=== PATIENT | female | born 1990 | race Caucasian/White ===

== ENCOUNTER 2024-10-30 10:08 | Emergency (ER) | payer BC, MEDICAID ==
[~2024-10-30] VITALS: Ht 167.6 cm; Wt 88.5 kg
[2024-10-30] MEDS ORDERED: IBUPROFEN 400 MG TABLET ONE (10:53)
[2024-10-30] MEDS ORDERED: AMOXicillin 250 MG CAPSULE ONE (10:53)
[2024-10-30] MEDS ORDERED: ACETAMINOPHEN 500 MG TABLET ONE (10:53)
[2024-10-30] MEDS ORDERED: NEOM10DR11 RIGHT EAR (10:54)
[2024-10-30] MEDS ORDERED: AMOX500C2 PO (10:54)
[2024-10-30] MEDS: AMOXicillin 250 MG CAPSULE PO ONE (10:57)
[2024-10-30] MEDS: IBUPROFEN 400 MG TABLET PO ONE (10:57)
[2024-10-30] MEDS: ACETAMINOPHEN 500 MG TABLET PO ONE (10:57)
[2024-10-30 11:06] VITALS: BP 119/86; O2SAT 100
== END 2024-10-30 11:02 ==
LOC: ER 10:08
DX: H60.91 Unspecified otitis externa, right ear (principal); F12.10 Cannabis abuse, uncomplicated; F17.200 Nicotine dependence, unspecified, uncomplicated; F41.9 Anxiety disorder, unspecified
CPT/HCPCS: A4606; A4663; A9150

== ENCOUNTER 2024-11-06 18:32 | Emergency (ER) | payer BC, MEDICAID ==
[~2024-11-06] VITALS: Ht 167.6 cm; Wt 88.5 kg
[~2024-11-06 18:32] MED LIST: AMOX500C2 PO; NEOM10DR11 RIGHT EAR
[2024-11-06] MEDS ORDERED: IBUPROFEN 800 MG TABLET ONE (19:14)
[2024-11-06] MEDS ORDERED: ACETAMINOPHEN 500 MG TABLET ONE (19:14)
[2024-11-06] MEDS: ACETAMINOPHEN 500 MG TABLET PO ONE (19:15)
[2024-11-06] MEDS: IBUPROFEN 800 MG TABLET PO ONE (19:15)
[2024-11-06] MEDS ORDERED: CIPROFLOXACIN HCL 250 MG TABLET ONE (19:15)
[2024-11-06] MEDS: CIPROFLOXACIN HCL 250 MG TABLET PO ONE (19:15)
[2024-11-06] MEDS ORDERED: CIPR500T5 PO (19:25)
[2024-11-06] MEDS ORDERED: IBUP-1955 PO (19:25)
[2024-11-06] MEDS ORDERED: AMOX-430 PO (19:25)
[2024-11-06] MEDS ORDERED: CIPR10DR5 RIGHT EAR (19:25)
[2024-11-06 19:40] VITALS: BP 122/69; TEMP 98; O2SAT 100
== END 2024-11-06 19:30 | disposition home or self-care (01) ==
LOC: ER 18:36
DX: H60.91 Unspecified otitis externa, right ear (principal); H66.91 Otitis media, unspecified, right ear; L03.211 Cellulitis of face; R42 Dizziness and giddiness; F41.9 Anxiety disorder, unspecified; F32.A Depression, unspecified; Z87.891 Personal history of nicotine dependence; Z88.7 Allergy status to serum and vaccine
CPT/HCPCS: A4606; A4663; A9150

== ENCOUNTER 2025-02-22 21:38 | Emergency (ER) | payer BC, MEDICAID, OTHER ==
[~2025-02-22] VITALS: Ht 167.6 cm; Wt 88.5 kg
[~2025-02-22 21:38] MED LIST changes: +AMOX-430 PO; +CIPR10DR5 RIGHT EAR; +CIPR500T5 PO; +IBUP-1955 PO
[2025-02-22 21:43] VITALS: BP 138/85; O2SAT 96
== END 2025-02-22 22:10 | disposition left against medical advice (07) ==
LOC: ER 21:38
DX: R10.9 Unspecified abdominal pain (principal); Z53.21 Procedure and treatment not carried out due to patient leaving prior to being seen by health care provider
CPT/HCPCS: A4606; A4663